=== PATIENT | female | born 1965 | race Caucasian/White ===

== ENCOUNTER 2019-10-06 21:51 | Emergency (ER) | payer BC ==
[~2019-10-06] VITALS: Ht 162.6 cm; Wt 59.0 kg
[2019-10-06 21:58] VITALS: Ht 162.6 cm; Wt 59.0 kg
[2019-10-07 00:01] LABS: CALCIUM 9.3 mg/dL (8.5-10.1); CARBON DIOXIDE 25.3 mmol/L (21-32); CHLORIDE SERUM 102 mmol/L (98-107); CREATININE SERUM 0.6 mg/dL (0.6-1.0); GFR1 > 60 mL/min; GLUCOSE SERUM 93 mg/dL (74-106); POTASSIUM SERUM 4.5 mmol/L (3.5-5.1); SODIUM SERUM 139 mmol/L (136-145)
[2019-10-07 00:06] LABS: ALBUMIN 4.4 g/dL (3.4-5.0); ALKALINE PHOSPHATASE 61 U/L (46-116); ALT/SGPT 22 U/L (14-59); AST/SGOT 24 U/L (15-37); BILIRUBIN TOTAL 0.4 mg/dL (0.20-1.00); LIPASE 120 IU/L (73-393); TOTAL PROTEIN, SERUM 8.1 g/dL (6.4-8.2)
[2019-10-07 00:08] LABS: BASOPHIL % 0.2 % (0-2); PLATELET COUNT 320 x10^3mcL (130-400)
[2019-10-07 00:11] LABS: RED CELL DISTRIBUTION WIDTH 15.1 % (11.5-14.5)
[2019-10-07 01:36] VITALS: BP 150/91
== END 2019-10-07 01:36 | disposition home or self-care (01) ==
LOC: ED 21:51
PROVIDERS: Emergency Medicine
DX: R07.89 Other chest pain (principal); R00.2 Palpitations; R42 Dizziness and giddiness; Z20.828 Contact with and (suspected) exposure to other viral communicable diseases
CPT/HCPCS: 83880; Q0092; U0003-CS